=== PATIENT | female | born 1980 | race Caucasian/White ===

== ENCOUNTER 2024-02-10 06:00 | Day surgery (SDC) | payer MEDICAID, SELFPAY ==
[2024-02-10] VITALS (8 sets, daily range): BP systolic 111–123; BP diastolic 66–80; PULSE 67–80; RESP 16; TEMP 36.1–36.6; O2SAT 95–99; BMI 38.3
--- NOTE | 2024-02-10 | ESO_PTH ---
[id number] LOC: EN U#:[id number] AGE/SX: 43/F ROOM: RE02/10/[address]: Dr. Brennan Garrett DO : 1980 BED: DIS: 02/10/2024 SPEC #: [id number] RECD: 02/10/24 14:12 STATUS: DASH LEMOSJoss #: [id number] JOLEEN: 02/10/24 00:[address]: Brennan Garrett DEPT: SURGICAL PATHOLOGY RECD BY: Sharif Villa Tissues: A - Duodenum, NOS B - Esophagus, NOS Procedures: Special Stain Group I Surgery Specimen Level IV Alcian Blue/PAS (control) HEADER OPERATION: EGD with biopsies PRE-OP DIAGNOSIS: Abdominal pain, gastric reflux, chronic constipation, metabolic dysfunction-associated steatotic liver TISSUE SUBMITTED: A- Duodenum biopsy, B- Distal esophagus biopsy MICROSCOPIC DIAGNOSIS A. Duodenum, biopsy: Fragments of duodenal mucosa, no pathologic diagnosis. B. Distal esophagus, biopsy: Fragments of gastroesophageal mucosa with chronic inflammation. Intestinal metaplasia (goblet cell metaplasia) not identified. See comment. / 02/11/2024 COMMENT B. Alcian blue/PAS stain with matched control is used in the evaluation of the specimen. MICROSCOPIC DESCRIPTION Slides are reviewed. GROSS DESCRIPTION A. Received in fixative is one container labeled with the patient's name and designated Duodenum biopsy. The specimen consists of multiple irregular fragments of light oliveira soft tissue that in aggregate measure 1.0 x 1.0 x 0.1 cm. The specimen is totally submitted in one cassette. B. Received in fixative is one container labeled with the patient's name and designated Distal esophagus biopsy. The specimen consists of multiple irregular fragments of light oliveira soft tissue that in aggregate measure 1.0 x 0.5 x 0.1 cm. The specimen is totally submitted in one cassette. 02/10/2024 TC:3 CPT:51970h3,25638
[2024-02-10] MEDS: Lactated Ringers 1,000 ML 15 ML IV (06:39)
--- NOTE | 2024-02-10 07:20 | PCM.HP.BLA ---
History and Physical Date of Admission: 02/10/24 HO COSME, is a 43 F who presents to the office today for constant abdominal pain since 2022. Pt denies alcohol use but reports regular marijuana use. Patient complaining of right upper quadrant abdominal pain lasting about 5 to 10 minutes, 3 times a week since February 2023. She states that it comes even at rest or sometimes by stretching bending. She is on omeprazole for GERD. She had EGD about couple years ago and was told that she has GERD. She also had colonoscopy in 2021 and was told benign polyp but no official documentation available to verify it. No fever or chills. Patient had rectal bleed for which she had colonoscopy in 2021. She still gets some blood mixed. She also has IBS?constipation predominant. She states sometimes she sits for half an hour on bathroom without bowel movement. Labs, and referral paper from [employer] [facility] Dr. Winston Jamil reviewed. The patient has PCP but has not followed it. She also complains of weight gain, stated 50 pound since February 2023 and 15 pounds in last 1 month. ROS Const Constitutional: Positive for fatigue and weight change; No fever(s) Eyes Eyes: No blurry vision, change in vision or double vision ENT ENT: No dizziness/vertigo, nosebleed/epistaxis, difficulty swallowing or tongue swelling Resp Respiratory: No shortness of breath or wheezing Cardio Cardiology: Positive for leg pain with exertion; No chest pain at rest or dyspnea on exertion Gastro GI: Positive for abdominal pain, bloating, constipation, diarrhea, excessive flatus, Blood in stool and nausea/dyspepsia; No belching, change in bowel habits, change in stool character, coffee ground emesis, cramping, heartburn, difficulty swallowing, feeling full early, incontinent of stools, Vomiting blood/hematemesis, loose stools, Black,tarry stools, pain with swallowing, vomiting or other Genitourinary-Female: No difficulty urinating or burning urination Musc Musculoskeletal: Positive for joint pain, back pain, joint swelling, muscle cramps, muscle weakness, numbness, stiffness, tingling, Arthritis, sciatica, restless legs, leg pain at night and leg pain with exertion Skin Skin: Positive for dry skin; No yellowing of the eye, itchy eyes or rash Neuro Neurology: Positive for numbness, tingling, restless legs and tremor(s); No abnormal movements, behavioral changes, weakness or lack of coordination Psych Psychiatric: No anxiety, No behavioral changes, No depression, No hyperactivity and No inattentiveness Endo Endocrine: Positive for fatigue and weight change Aller/Imm Allergy/Immunologic: No itchy eyes, tongue swelling or wheezing Waqas/Lymp Hematologic/Lymphatic: No easy bleeding or easy bruising Exam Const General: cooperative, no acute distress and well developed Nutritional Appearance: average body habitus Orientation: alert, awake and oriented x3 [facility] Head: normocephalic and atraumatic Nose: external nose normal Face and sinus: normal facial exam Mouth: moist mucous membranes Eyes Pupils: PERRL EOM: EOM intact bilaterally Neck Neck: normal visual inspection, no meningeal signs and trachea midline Carotids: no bruits Chest Chest palpation & inspection: normal inspection of the chest Resp Effort & Inspection: normal respiratory effort and symmetric chest movement Auscultation: Bilateral: Clear to Auscultation Cardio Palpation: normal PMI Rate: regular rate Rhythm: regular rhythm Heart Sounds: S1 normal and S2 normal GI Auscultation: normal bowel sounds Percussion: normal to percussion Palpation: soft, no hepatosplenomegaly and no guarding Other: Mild tenderness in right upper quadrant. No guarding/rigidity. No palpable mass. General: bimanual renal exam normal bilaterally, bladder normal to inspection and bladder normal to palpation Bimanual Exam- Vagina & Uterus: bladder normal to palpation Musc Musculoskeletal: No joint tenderness, joint redness, joint warmth or decreased range of motion Thoracic/Lumbar Spine: thor and lumb spine abnorm to inspection Skin General: rashes and/or lesions noted, turgor normal and no erythema Wounds: wound noted Neuro General: patient alert, patient awake, patient oriented x3 and no focal motor deficits Speech: speech normal Motor: muscle tone normal throughout Extrem General: normal exam except as noted Other: No pedal edema. Psych Appearance: grossly normal Mood: congruent mood Affect: normal affect Attitude: cooperative Assessment and Plan Assessment and Plan (1) Abdominal pain: Status: Chronic Plan: Patient has chronic abdominal pain since February 2022. She also had GERD on previous EGD. On omeprazole. Multiple differential which includes liver/biliary disorder including Budd-Chiari syndrome,, portal vein thrombosis, Jerome-Aravind Ayan syndrome, celiac disease, GERD, PUD or even IBS. From the [facility] Dr. Winston Razo note, liver chemistry and lab normal. She has history of endometriosis, polycystic ovaries which itself is a risk factor for obesity. She had colonoscopy 2021 and needs a note mention inflammation but patient said benign polyp was found and removed. She is not on any medication for IBS-C. Right upper quadrant ultrasound with elastography and color duplex ordered. Comprehensive labs ordered ordered. (2) Gastric reflux: Status: Chronic Plan: Continue PPI. EGD ordered. (3) Chronic constipation: Status: Chronic Plan: Advised to take MiraLAX and senna S 2 tablet twice daily. (4) Metabolic dysfunction-associated steatotic liver disease (MASLD): Status: Chronic Plan: Does not have ultrasound report or elastography to review it. Clinically based on the risk factors of obesity, weight gain, physical inactivity and medications include HRT?hormone replacement therapy. Patient sent she took estrogen for about 1 year without progesterone. She is not taking estrogen since July 2023. She is also on Percocet, Zanaflex for chronic back pain. She is on Seroquel 200 mg at night for sleep. Medications including Seroquel can give rise to weight gain. Referred to the home restoration service cleaner. Advised that weight loss, healthy nutrition. Vitamin E and ursodiol ordered for now until more clinical information, imaging and labs available Follow-up in 3 months. Orders: I have examined the patient and the H&P has been reviewed. There are no clinical changes since date of exam.
--- NOTE | 2024-02-10 07:26 | PRE.ANES_ITS ---
ASA Classification* ASA Classification ASA Classification: 3 Assessment & Plan Anesthesia* Anesthesia Assessment Anesthesia Assessment: Discussed sedation and/or anesthesia options, risks, benefits, and alternatives with patient/parents/legal guardian/POA. Questions invited. The patient/parents/legal guardian/POA seems to understand and agrees to proceed with anesthesia plan. Reviewed the physical assessment, medical history, allergy history and patient home medications list prior to surgery/procedure/anesthetic and documented any changes. Performed airway and anesthesia risk assessments. Anesthesia Type Anesthesia Type: MAC (see written pre anesthesia record for full assessment ) Anesthesia Focused Assessment* Temperature: 97.9 F Pulse Rate: 76 Blood Pressure: 123/66 Respiratory Rate: 16 Pulse Ox: 99 Airway Assessment Mouth opens: >3 cm Mallampati Score: II Focused Labs Anesthesia Preop lab: CBC CHEMISTRY COAG Pre-Assessment Diagnosis/Proposed Procedure Planned Operative Procedure(s): EGD Anesthesia History Anesthesia History - housekeeping room inspector: Anesthesia History - housekeeping room inspector Hx Hospitalization No 02/06/24 12:19 Any Problems With Anesthesia No 02/06/24 12:19 Cholinesterase deficiency No 02/06/24 12:19 You/Your Family Experience No 02/06/24 12:19 fever (hyperthermia) with Relationship Recent Exposure to Contagious No 02/10/24 06:35 Disease Does patient have nerve No 02/06/24 12:19 stimulator Patient instructed to have device shut off --Does patient have Pacemaker No 02/10/24 06:36 or ICD? When Was Last Pacemaker Check QUESTION #4 FULL TEXT: You/Your Family Experience fever (hyperthermia) with Anesthesia Last Oral Intake Last Oral intake: Last Oral Intake NPO since 00:00 02/10/24 06:36 Meds taken in AM with sips of water? Meds patient instructed to take am of surgery PONV PONV - housekeeping room inspector: PONV - housekeeping room inspector Female Yes 02/06/24 12:19 HX of Motion Sickness No 02/06/24 12:19 HX of N/V After Surgery No 02/06/24 12:19 Non-Smoker Yes 02/06/24 12:19 Duration of Surgery greater No 02/06/24 12:19 than 60 minutes Number of Risk Factors 2 02/06/24 12:19 PONV Score Moderate Risk 02/06/24 12:19 Height & Weight Height & Weight: Anesthesia: Height & Weight Height 5 ft 7 in 02/10/24 06:36 Weight: 111 kg 02/10/24 06:36 Body Mass Index (BMI) 38.3 02/10/24 06:36 Respiratory Assessment Respiratory Assessment - housekeeping room inspector: Respiratory Tract Infection Hx - housekeeping room inspector Hx Respiratory Tract Infection No 02/06/24 12:19 STOP Sleep Apnea STOP Sleep Apnea - housekeeping room inspector: STOP Sleep Apnea - housekeeping room inspector Hx Hypertension No 02/06/24 12:19 Hx Sleep Apnea No 02/06/24 12:19 CPAP BIPAP Do you snore loudly (louder No 02/06/24 12:19 than talking or can be heard Do you often feel tired/ No 02/06/24 12:19 fatigued/ sleepy during daytime? Has anyone observed you stop No 02/06/24 12:19 breathing during sleep? STOP Results Negative 02/06/24 12:19 QUESTION #5 FULL TEXT : Do you snore loudly (louder than talking or can be heard through closed doors)? Tobacco Use History Tobacco Use History - housekeeping room inspector: Tobacco Use History - housekeeping room inspector Tobacco Use Smoking Status Former smoker 02/06/24 12:19 Hx Tobacco Use Yes 02/06/24 12:19 Years Smoking Packs Smoked per Day Smoking Cessation Date was Yes - quit smoking within 15 02/06/24 12:19 within the last 15 years years Hx Smoking Cessation Date 08/25/23 02/06/24 12:19 Hx Smoking Cessation Counseling Hematologic Medial History Hematologic Hx - housekeeping room inspector: Hematologic Medical Hx - manager professional development Hx of Blood Transfusion No 02/06/24 12:19 Hx of Transfusion in last 3 No 02/06/24 12:19 Months Date of Last Transfusion (if within last 3 months) Ever experience any problems No 02/06/24 12:19 with transfusion(s)? Specify any problems Hx of Preganancy in last 3 N/A 02/06/24 12:19 Months Nurse Filling Out Transfusion NBUCHER 02/06/24 12:19 & Questions: Date: 02/06/24 02/06/24 12:19 Time: 12:21 02/06/24 12:19 Patient unable to answer at this time (ie. confused, unrespo /Reproduction History /Reproductive History - housekeeping room inspector: /Reproductive Hx- housekeeping room inspector Hx Now No 02/06/24 12:19 Gestational Age (in weeks): EDC: Hx Hx Para Hx Section SAB No 02/06/24 12:19 Active Medications Active Medications: Current Medications Generic Name Dose Route Start Last Admin Trade Name Freq PRN Reason Stop Dose Admin Lactated Ringer's 1,000 mls @ 15 mls/hr 02/10/24 06:15 02/10/24 06:39 IV 15 mls/hr .Q48H LEONCIO Administration PFSH Medical History GERD (gastroesophageal reflux disease) Wears partial dentures Anxiety Marijuana use DDD (degenerative disc disease) Injury of back Arthritis Fatty liver Restless legs Migraine headache History of IBS Former smoker Home Medications ?Medication ?Instructions ?Recorded ?Last Taken ?Type ursodiol 300 mg capsule 300 mg PO BID #60 caps 01/19/24 02/09/24 Rx vitamin E succinate 268 mg (400 268 mg PO BID 1 month #60 tabs 01/19/24 Unknown Rx unit) tablet omeprazole 40 mg capsule,delayed 40 mg PO DAILY 02/06/24 02/09/24 History release oxycodone-acetaminophen 5 mg-325 1 tab PO 4X/DAY BACK PAIN 02/06/24 Unknown His tory mg tablet quetiapine 200 mg tablet 200 mg PO QHS 02/06/24 02/09/24 History tizanidine 4 mg tablet 2 mg PO BID PRN muscle spasticity 02/06/24 Unknown History Allergy/AdvReac Type Severity Reaction Status Date / Time ciprofloxacin (From Cipro) Allergy Severe Hives Verified 02/06/24 12:16 clindamycin Allergy Severe Rash Verified 02/06/24 12:16 Penicillins (PCN) Allergy Severe HIVES Verified 02/06/24 12:16 tetracycline Allergy Severe Rash Verified 02/06/24 12:16 metronidazole (From Flagyl) Allergy Intermediate Rash Verified 02/06/24 12:16 morphine Allergy Intermediate Other Verified 02/06/24 12:16 Surgical History History of oophorectomy (~2022) History of salpingectomy (~2016) History of laparoscopy (~2009) History of hysterectomy (~2019) Hx of colonoscopy (~2021) Social History Smoking Status: Former smoker Review of Systems (Anesthesia) ROS Narrative System reviewed and no additional complaints, except as documented.
--- NOTE | 2024-02-10 07:39 | OP.EGD_ITS ---
Patient Name: Loils Doyle Procedure Date: 02/10/2024 7:23 AM Date of : 1980 Age: 43 Procedure: Upper GI endoscopy Indications: Epigastric abdominal pain, Abdominal pain in the right upper quadrant Providers: Brennan Garrett DO Referring MD: Lady Jade Medicines: Monitored Anesthesia Care Patient Profile: This is a 43 year old female. Refer to note in patient chart for documentation of history and physical. Patient has symptoms of chronic right upper quadrant abdominal pain and chronic epigastric abdominal pain. Complications: No immediate complications. Procedure: Pre-Anesthesia Assessment: - Prior to the procedure, a History and Physical was performed, and patient medications and allergies were reviewed. The patient is competent. The risks and benefits of the procedure and the sedation options and risks were discussed with the patient. All questions were answered and informed consent was obtained. Patient identification and proposed procedure were verified by the physician in the pre-procedure area. Mental Status Examination: alert and oriented. Airway Examination: normal oropharyngeal airway and neck mobility. Respiratory Examination: clear to auscultation. CV Examination: normal. Prophylactic Antibiotics: The patient does not require prophylactic antibiotics. Prior Anticoagulants: The patient has taken no anticoagulant or antiplatelet agents. ASA Grade Assessment: III - A patient with severe systemic disease. After reviewing the risks and benefits, the patient was deemed in satisfactory condition to undergo the procedure. The anesthesia plan was to use monitored anesthesia care (MAC). Immediately prior to administration of medications, the patient was re-assessed for adequacy to receive sedatives. The heart rate, respiratory rate, oxygen saturations, blood pressure, adequacy of pulmonary ventilation, and response to care were monitored throughout the procedure. The physical status of the patient was re-assessed after the procedure. After obtaining informed consent, the endoscope was passed under direct vision. Throughout the procedure, the patient's blood pressure, pulse, and oxygen saturations were monitored continuously. The Endoscope was introduced through the mouth, and advanced to the second part of duodenum. The upper GI endoscopy was accomplished without difficulty. The patient tolerated the procedure well. Scope In: 7:29:16 AM Scope Out: 7:33:26 AM Total Procedure Duration Time 0 hours 4 minutes 10 seconds Findings: LA Grade A (one or more mucosal breaks less than 5 mm, not extending between tops of 2 mucosal folds) esophagitis with no bleeding was found 37 to 40 cm from the incisors. Biopsies were taken with a cold forceps for histology. Verification of patient identification for the specimen was done. Estimated blood loss was minimal. Clear fluid was found in the gastric body. No other significant abnormalities were identified in a careful examination of the stomach. Patchy moderate inflammation characterized by congestion (edema), erythema and granularity was found in the duodenal bulb and in the first portion of the duodenum. Biopsies were taken with a cold forceps for histology. Verification of patient identification for the specimen was done. Estimated blood loss was minimal. Impression: - LA Grade A erosive esophagitis with no bleeding. Biopsied. - Clear gastric fluid. - Chronic duodenitis. Biopsied. Recommendation: - Discharge patient to home. - Resume previous diet. - Continue present medications. - Await pathology results. Procedure Code(s): --- Professional --- 47639, Esophagogastroduodenoscopy, flexible, transoral; with biopsy, single or multiple CPT copyright 2021 [employer]. All rights reserved. The codes documented in this report are preliminary and upon mop worker review may be revised to meet current compliance requirements. Brennan Garrett DO 02/10/2024 7:39:39 AM This report has been signed electronically. Number of Addenda: 0 Note Initiated On: 02/10/2024 7:23 AM
--- NOTE | 2024-02-10 07:39 | OP.CCLET_ITS ---
02/10/2024 Lady Jade Re : Upper GI endoscopy procedure for Lolis Doyle Dear Yasmany This procedure was performed on Saturday, February 10, 2024. My impressions and recommendations are as follows: Impressions : - LA Grade A erosive esophagitis with no bleeding. Biopsied. - Clear gastric fluid. - Chronic duodenitis. Biopsied. Recommendations : - Discharge patient to home. - Resume previous diet. - Continue present medications. - Await pathology results. My findings are described in the full procedure note, which is enclosed. If I can be of further assistance, please feel free to contact me at . Sincerely, Brennan Garrett, 02/10/2024 7:39:39 AM This report has been signed electronically.
--- NOTE | 2024-02-10 07:40 | PCM.POST.ANE ---
Anesthesia: Postop Eval I Current Vital Signs Temperature: 97.6 F Pulse Rate: 70 Blood Pressure: 111/74 Respiratory Rate: 16 Pulse Ox: 95 Oxygen Delivery Method: Room Air Assessment Airway patent: Yes Spontaneous unlabored respirations: Yes Mental status: Awake and Calm nausea: No Vomiting: No Anesthesia Complication: No Fluid Hydration Crystalloid volume administer (ml): 400 Total IV fluid infused: 400 Progress Note Anesthesia document: Postop Eval 1 completed: Yes
--- NOTE | 2024-02-10 07:42 | PCM.POSTANE2 ---
Anesthesia Postop Eval I Sum Postop Eval Completion status Anesthesia document: Postop Eval 1 completed: Yes Anesthesia Postop Eval I Summary Anesthesia Postop Eval I Summary: Anesthesia Postop Eval I: Assessment Summary Airway patent Yes 02/10/24 07:41 [email or web address] Spontaneous unlabored Yes 02/10/24 07:41 [email or web address] respirations Mental status Awake,Calm 02/10/24 07:41 [email or web address] nausea No 02/10/24 07:41 [email or web address] Vomiting No 02/10/24 07:41 [email or web address] Anesthesia Postop Eval I: Fluid Summary Crystalloid volume administer 400 02/10/24 07:41 [email or web address] (ml) Colloids volume administered ( ml) Blood Product volume administered (ml) Total IV fluid infused 400 02/10/24 07:41 [email or web address] Anesthesia Postop Eval I: Summary Notes Anesthesia Complication No 02/10/24 07:41 [email or web address] Anesthesia Complication Comment: Post-operative progress note Anesthesia: Postop Eval II Evaluation Mental status: Awake Pain Level: 0 nausea: No Vomiting: No
== END 2024-02-10 08:10 | disposition home or self-care (01) ==
LOC: EN 06:02 → AC 06:02
PROVIDERS: Visit Provider Internal Medicine Gastroenterology
PROC: 0DJ08ZZ Inspection of Upper Intestinal Tract, Via Natural or Artificial Opening Endoscopic (ICD-10-PCS; CPT 43235; principal; 2024-02-10 06:55)
DX: K21.00 Gastro-esophageal reflux disease with esophagitis, without bleeding (principal); K29.80 Duodenitis without bleeding; K22.10 Ulcer of esophagus without bleeding; K76.0 Fatty (change of) liver, not elsewhere classified; Z79.899 Other long term (current) drug therapy
CPT/HCPCS: 43239; 88305; 88312; J7120; J2405